=== PATIENT | female | born 1995 | race Two or more races ===

== ENCOUNTER 2024-07-31 05:00 | Inpatient (IN) | payer OTHER ==
[2024-07-31 06:25] LABS: INR 0.98 (0.83-1.09); PROTHROMBIN TIME (PATIENT) 10.7 SEC (9.7-13.0)
[2024-07-31 06:36] LABS: CHLORIDE 110 mmol/L (98-107)
[2024-07-31 06:37] LABS: ANION GAP 9 mmol/L (4-13); CALCIUM 9.8 mg/dL (8.5-10.1); CO2 22 mmol/L (21-32); POTASSIUM 3.5 mmol/L (3.5-5.1); SODIUM 141 mmol/L (136-145)
[2024-07-31 06:38] LABS: GLUCOSE,RANDOM 92 mg/dL (74-106)
[2024-07-31 06:41] LABS: ABSOLUTE IMMATURE GRANULOCYTES 0.05 x10^3/uL (0.0-0.031); BASOPHILS # 0.02 x10^3/uL (0.01-0.08); CREATININE 0.4 mg/dL (0.55-1.3); EOSINOPHIL % 1.3 % (0.7-5.8); EOSINOPHILS # 0.09 x10^3/uL (0.04-0.36); HEMATOCRIT 30.1 % (34.1-44.9); HEMOGLOBIN 9.5 g/dL (11.2-15.7); MCHC 31.6 g/dl (32.2-35.5); MEAN CELL VOLUME 81.8 fl (79.4-94.8); MEAN PLT VOLUME 9.9 fl (9.4-12.3); MONOCYTE # 0.73 x10^3/uL (0.24-0.86); MONOCYTE % 10.7 % (4.7-12.5); PLATELET COUNT 312 x10^3/uL (182-369); RDW 22.2 % (12.1-16.5)
[2024-07-31 06:43] VITALS: BMI 29.5
[2024-07-31] MEDS: ELECTROLYTE-148 SOLN 500 ML IV SCH (06:52)
[2024-07-31 06:58] LABS: BLOOD UREA NITROGEN 2.8 mg/dL (7-18)
[2024-07-31] MEDS: ELECTROLYTE-148 SOLN 1,000 ML IV SCH (07:00)
[2024-07-31] MEDS: CITRIC ACID/SODIUM CITRATE 30 ML UNIT-DOSE CUP PO ONE (07:30)
[2024-07-31] MEDS ORDERED: OXYTOCIN 10 UNITS/ML VIAL ONE (08:07)
[2024-07-31] MEDS ORDERED: morphine SULFATE/PF 1 MG/2 ML (2cc Syringe - QUVA) ONE (08:07)
[2024-07-31] MEDS ORDERED: FENTANYL CITRATE/PF 50 MCG/ML VIAL ONE (08:07)
[2024-07-31] MEDS ORDERED: KETOROLAC TROMETHAMINE 30 MG/1 ML VIAL ONE (08:07)
[2024-07-31] MEDS ORDERED: PHENYLEPHRINE HCL 10 MG/1 ML SINGLE DOSE VIAL ONE (08:07)
[2024-07-31] MEDS ORDERED: ONDANSETRON 4 MG/2 ML VIAL ONE (08:07)
[2024-07-31] MEDS ORDERED: ceFAZolin SODIUM 1 GM VIAL ONE (08:08)
[2024-07-31] MEDS ORDERED: METHYLERGONOVINE MALEATE 0.2 MG/1 ML AMP IM PRN (09:56)
[2024-07-31] MEDS ORDERED: ACETAMINOPHEN 325 MG TABLET (FP) PO PRN (09:56)
[2024-07-31] MEDS ORDERED: ACETAMINOPHEN 1000 MG/100 ML BAG IVPB PRN (09:57)
[2024-07-31] MEDS ORDERED: IBUPROFEN 800 MG/8 ML IJ IVPB PRN (09:58)
[2024-07-31 10:06] LABS: CORD BASE EXCESS -3.1 mmol/L (0-2); CORD HCO3 22.8 mmHg (20-29); CORD HCO3 24.4 mmHg (20-29); CORD PCO2 43.9 mmHg (30-78); CORD PCO2 55.7 mmHg (30-78); CORD pH 7.333 (7.14-7.44)
[2024-07-31] MEDS ORDERED: OXYTOCIN 20 UNITS in 0.9% NS 20 UNIT/1,000 ML INFUS.BAG IV ONE (10:16)
[2024-07-31] MEDS: OXYTOCIN 20 UNITS in 0.9% NS 20 UNIT/1,000 ML INFUS.BAG IV SCH (10:20)
[2024-07-31] MEDS ORDERED: ONDANSETRON 4 MG/2 ML VIAL IVPUSH PRN (12:46)
[2024-07-31] MEDS: FERROUS SO4 325 MG TABLET (FP) PO SCH (16:58)
[2024-07-31] MEDS ORDERED: oxyCODONE HCL 5 MG TABLET PO PRN ×2 (21:56)
[2024-08-01] MEDS: IBUPROFEN 600 MG TABLET (FP) PO PRN (04:26)
[2024-08-01 07:35] LABS: ABSOLUTE IMMATURE GRANULOCYTES 0.06 x10^3/uL (0.0-0.031); BASOPHILS # 0.03 x10^3/uL (0.01-0.08); EOSINOPHIL % 0.5 % (0.7-5.8); EOSINOPHILS # 0.05 x10^3/uL (0.04-0.36); HEMATOCRIT 28.3 % (34.1-44.9); MCHC 31.8 g/dl (32.2-35.5); MEAN CELL VOLUME 80.9 fl (79.4-94.8); MEAN PLT VOLUME 9.9 fl (9.4-12.3); MONOCYTE # 1.16 x10^3/uL (0.24-0.86); MONOCYTE % 11.2 % (4.7-12.5); PLATELET COUNT 321 x10^3/uL (182-369); RDW 21.9 % (12.1-16.5)
[2024-08-01] MEDS ORDERED: BISACODYL 10 MG SUPP.RECT RC PRN (09:56)
[2024-08-01] MEDS: SIMETHICONE 80 MG TAB.CHEW (FP) PO PRN (16:43)
[2024-08-01] MEDS: BISACODYL 5 MG TABLET.DR (FP) PO SCH (17:53)
[2024-08-02 08:58] VITALS: BP 125/72; PULSE 76; RESP 17; TEMP 98.2
== END 2024-08-02 13:00 | disposition home or self-care (01) | DRG 540 ==
LOC: JLDR 05:00 → J3W 12:20
PROVIDERS: ADMIT Obstetrics & Gynecology Obstetrics; ATTEND Obstetrics & Gynecology Obstetrics
PROC: 10D00Z1 Extraction of Products of Conception, Low, Open Approach (ICD-10-PCS; principal; 2024-07-31)
DX: O34.211 Maternal care for low transverse scar from previous cesarean delivery (principal); N85.8 Other specified noninflammatory disorders of uterus; Z3A.39 39 weeks gestation of pregnancy; Z37.0 Single live birth
CPT/HCPCS: 36415; 36600; 80048; 82803; 85025; 85610; 85730; 86780; 86850; 86900; 86901; 88307-TC; 94010